=== PATIENT | female | born 1945 | race Caucasian/White ===

== ENCOUNTER 2016-07-03 11:41 | Emergency (ER) | payer OTHER ==
[2016-07-03 11:54] VITALS: TEMP 97.9; BMI 21.1
--- NOTE | 2016-07-03 12:16 | PDOC ---
History of Present Illness - General Chief Complaint: Injury Stated Complaint: FACE INJURY S/P FALL Time Seen by Provider: 07/03/16 11:44 - History of Present Illness Initial Comments: 07/03/16 12:11 71-year-old female with a past medical history of hypothyroidism and hyperlipidemia She is on a baby aspirin daily, Synthroid, and Lipitor She is ALLERGIC to penicillin and sulfa Patient states she was at work today and she got up from her desk and went to walk to a counter (wood and metal counter) She tripped, and started falling and put her hands out to protect her face She struck her nose and orbits on the counter, without loss of consciousness She states that her glasses took some of the impact, and she is not complaining of any periorbital pain She is complaining of nasal pain, and started having a nosebleed immediately She did not hit her forehead she did not loss consciousness She is complaining of a bit of a headache now She denies any neck pain She states that she simply tripped and fell, and did not pass out or having syncope episode She denies any other injury, and the remainder of the review of systems is negative Past History - Past Medical History Allergies/Adverse Reactions: Allergies Allergy/AdvReac Type Severity Reaction Status Date / Time Penicillins AdvReac Swelling Verified 07/03/16 12:02 Sulfa (Sulfonamide AdvReac Swelling Verified 07/03/16 11:45 Antibiotics) Home Medications: Ambulatory Orders Aspirin [ASA -] 81 mg PO DAILY 07/03/16 Atorvastatin Ca [Lipitor] 0 mg PO HS 07/03/16 Levothyroxine [Synthroid -] 0 mcg PO DAILY 07/03/16 Hypercholesterolemia: Yes Seizures: Yes - Psycho/Social/Smoking Cessation Hx Anxiety: No Suicidal Ideation: No Smoking History: Current every day smoker Number of Cigarettes Smoked Daily: 3 Information on smoking cessation initiated: No Hx Alcohol Use: No Drug/Substance Use Hx: No Substance Use Type: None Review of Systems - Review of Systems Able to Perform ROS?: Yes Comments:: 07/03/16 12:13 Review of systems is as per history of present illness and otherwise negative *Physical Exam - Vital Signs Last Vital Signs Temp Pulse Resp BP Pulse Ox 97.9 F 119 H 18 155/111 98 07/03/16 11:42 07/03/16 11:42 07/03/16 11:42 07/03/16 11:42 07/03/16 11:42 - Physical Exam Comments: 07/03/16 12:14 Physical exam Last Vital Signs Temp Pulse Resp BP Pulse Ox 97.9 F 119 H 18 155/111 98 07/03/16 11:42 07/03/16 11:42 07/03/16 11:42 07/03/16 11:42 07/03/16 11:42 GENERAL: The patient is awake, alert, and fully oriented, and in no apparent distress. HEAD: Normal with no signs of trauma. EYES: Pupils equal, round and reactive to light, extraocular movements intact, sclera anicteric, conjunctiva are normal. There is no orbital tenderness or periorbital tenderness ENT: There is nasal bone tenderness and swelling, and evidence of a nosebleed from the left nares which has stopped Patient is able to open and close her mouth without tenderness, and there is no maxilla tenderness NECK: Normal range of motion, supple. No C-spine tenderness LUNGS: Breath sounds equal, clear to auscultation bilaterally. No wheezes, and no crackles. HEART: Regular rate and rhythm, normal S1 and S2 without murmur, rub or gallop. NEUROLOGICAL: Cranial nerves II through XII grossly intact. Normal speech, normal gait. Grossly nonfocal neurologic exam PSYCH: Normal mood, normal affect. 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 CT scan of the head without Mild to moderate volume loss without gross evidence of acute intracranial pathology Impression-nasal contusion with epistaxis No further epistaxis at this time 07/03/16 13:21 Repeat vital signs Blood pressure 143/ 97, heart rate 87 *DC/Admit/Observation/Transfer Diagnosis at time of Disposition: Nasal contusion, Epistaxis, Contusion of face - Discharge Dispostion Disposition: HOME Condition at time of disposition: Good - Patient Instructions Printed Discharge Instructions: DI for Nosebleed, Nosebleed Additional Instructions: Ice packs to your nose off and on for the next 24-48 hours Do not pick or blow your nose sneeze with your mouth open Cool beverages only for the next 24 hours Take it easy, no lifting Rest for the next few days Do not take your baby aspirin for the next few days Followup with your primary care physician in 24-48 hours Return immediately if you worsen in any way Take your medications as directed - Post Discharge Activity Work/School Note: Back to Work
[2016-07-03 13:21] VITALS: BP 143/97; PULSE 87
== END 2016-07-03 13:24 | disposition home or self-care (01) ==
LOC: FER 11:41
DX: S00.33XA Contusion of nose, initial encounter (principal); S00.83XA Contusion of other part of head, initial encounter; W22.03XA Walked into furniture, initial encounter; Y93.89 Activity, other specified; Y92.9 Unspecified place or not applicable; Y99.0 Civilian activity done for income or pay; R04.0 Epistaxis; Z79.82 Long term (current) use of aspirin; F17.210 Nicotine dependence, cigarettes, uncomplicated; E78.00 Pure hypercholesterolemia, unspecified; E03.9 Hypothyroidism, unspecified
CPT/HCPCS: 70450-TC; 70486-TC; 99281-25